=== PATIENT | female | born 1965 | race Caucasian/White ===

== ENCOUNTER → 2017-06-19 | Outpatient (CLI) | payer OTHER ==
[2017-06-19 20:20] LABS: THYROXINE (T4) 7.5 UG/DL (4.5-12.0)
[2017-06-19 20:40] LABS: BASO % 0.3 % (0.0-1.0); EOS # 0.3 10^3/uL (0.0-0.50); EOS % 4.1 % (0.0-3.0); IMMATURE GRANULOCYTE % 0.2 % (0-0); LYMPH # 2.7 10^3/uL (1.5-4.5); LYMPH % 42.2 % (24.0-44.0); MEAN CORPUSCULAR HGB CONC 32.1 g/dl (32.0-36.5); MEAN CORPUSCULAR VOLUME 93.5 fl (80.0-96.0); MONO # 0.6 10^3/uL (0.0-0.8); MONO % 9.7 % (0.0-5.0); NEUTROPHILS # 2.8 10^3/uL (1.8-7.7); NEUTROPHILS % 43.5 % (36.0-66.0); PLATELET COUNT, AUTOMATED 228 10^3/uL (150-450); WHITE BLOOD COUNT 6.4 10^3/uL (4.0-10.0)
[2017-06-19 21:14] LABS: ADD MORPHOLOGY? NO
== END ==
LOC: M WUC 17:12
PROVIDERS: ATTEND Nurse Practitioner Family
DX: L80 Vitiligo (principal)

== ENCOUNTER 2017-12-09 11:55 | Emergency (ER) | payer OTHER | END 2017-12-09 14:43 | disposition home or self-care (01) | LOC: M ED 11:55 | DX: S06.0X0A Concussion without loss of consciousness, initial encounter (principal); S00.93XA Contusion of unspecified part of head, initial encounter; V43.92XA Unspecified car occupant injured in collision with other type car in traffic accident, initial encounter; Y92.410 Unspecified street and highway as the place of occurrence of the external cause | CPT/HCPCS: 70450 ==

== ENCOUNTER → 2022-04-02 | Outpatient (CLI) | payer OTHER ==
[~2022-04-02] MED LIST: IBUP-1022 PO
== END ==
LOC: M LABSMTC 11:33
PROVIDERS: ATTEND Anesthesiology
DX: Z01.812 Encounter for preprocedural laboratory examination (principal)

== ENCOUNTER 2022-04-05 06:56 | Day surgery (SDC) | payer OTHER ==
[~2022-04-05] VITALS: Ht 165.1 cm; Wt 84.8 kg
[~2022-04-05 06:56] MED LIST changes: +NS 1,000 ML IV ONE
[2022-04-05] MEDS ORDERED: propofoL 200 MG/20 ML VIAL As Ordered ONE ×2 (08:09→08:17)
[2022-04-05] MEDS ORDERED: LIDOCAINE 2% INJ 100 MG/5 ML SYRINGE As Ordered ONE (08:42)
[2022-04-05 08:49] VITALS: BP 108/57
== END 2022-04-05 08:52 | disposition home or self-care (01) ==
LOC: M OPP 06:56
PROVIDERS: ATTEND Surgery
DX: Z12.11 Encounter for screening for malignant neoplasm of colon (principal); Z86.010 Personal history of colon polyps; K63.5 Polyp of colon; Z79.1 Long term (current) use of non-steroidal anti-inflammatories (NSAID)